=== PATIENT | male | born 1990 | race Caucasian/White ===

== ENCOUNTER 2018-04-05 08:41 | Emergency (ER) | payer OTHER ==
[~2018-04-05] VITALS: Ht 175.3 cm; Wt 88.5 kg
[~2018-04-05 08:41] MED LIST: AMOX1TAB12 PO
[2018-04-05] MEDS ORDERED: SKELAXIN800 MG PO (10:57)
[2018-04-05] MEDS ORDERED: KETO10TA2 PO (10:57)
== END 2018-04-05 11:53 ==
LOC: ER 08:41
DX: S73.101A Unspecified sprain of right hip, initial encounter (principal); X58.XXXA Exposure to other specified factors, initial encounter; Y93.89 Activity, other specified; Y92.89 Other specified places as the place of occurrence of the external cause; Y99.8 Other external cause status

== ENCOUNTER 2018-05-25 20:17 | Emergency (ER) | payer OTHER ==
[~2018-05-25] VITALS: Ht 175.3 cm; Wt 95.3 kg
[~2018-05-25 20:17] MED LIST changes: +KETO10TA2 PO; +SKELAXIN800 MG PO
[2018-05-26] MEDS ORDERED: MEDROL8 MG PO (01:02)
[2018-05-26] MEDS ORDERED: ZYRTEC10 MG PO (01:02)
[2018-05-26] MEDS ORDERED: PEPCID40 MG PO (01:02)
== END 2018-05-26 01:09 | disposition home or self-care (01) ==
LOC: ER 20:17
DX: T78.1XXA Other adverse food reactions, not elsewhere classified, initial encounter (principal); R21 Rash and other nonspecific skin eruption

== ENCOUNTER 2021-06-29 22:32 | Emergency (ER) | payer OTHER ==
[~2021-06-29] VITALS: Ht 172.7 cm; Wt 99.8 kg
[~2021-06-29 22:32] MED LIST changes: +MEDROL8 MG PO; +PEPCID40 MG PO; +ZYRTEC10 MG PO
[2021-06-30] MEDS ORDERED: ZOFRAN8 MG PO ×2 (06:24)
[2021-06-30] MEDS ORDERED: PROTONIX40 MG PO (06:24)
[2021-06-30] MEDS ORDERED: PEPCID40 MG PO (06:24)
== END 2021-06-30 06:49 ==
LOC: ER 22:32
DX: K29.00 Acute gastritis without bleeding (principal); Z91.013 Allergy to seafood